=== PATIENT | male | born 1980 | race Two or more races ===

== ENCOUNTER 2025-03-24 12:33 | Emergency (ER) | payer OTHER ==
[~2025-03-24] VITALS: Ht 182.9 cm; Wt 134.0 kg
[2025-03-24] MEDS: IOHEXOL 300 MG/ML 100ML BOTTLE IJ ONE (13:28)
--- NOTE | 2025-03-24 13:38 | DVH ---
Procedure: CT HEAD WITHOUT CONTRAST Study Date and Requested Time: 03/24/2025 01:07 PM History: kicked off a horse Comparison: None Dose: CTDI: 47.96 mGy DLP: 1023.69 mGycm Technique: Multiplanar images obtained through the brain without intravenous contrast. Findings: Normal brain volume and formation. No hemorrhages, masses, mass effect, midline shift, herniation or cytotoxic edema following a large v ascular territory. No intra-axial or extra-axial fluid collections. No evidence of hydrocephalus. The basal cisterns are patent. The pituitary gland, sella and parasellar regions are unremarkable. The cerebellar tonsils are in nor mal position. The cerebellum is unremarkable. The orbits and globes are unremarkable. Mucous retention cysts within the right maxillary sinus with minimal mucoperiosteal thickening of the left maxillary sinus. Otherwise, the visualized paranasal si nuses and mastoids are clear. There are no worrisome calvarial lesions. Mild parieto-occipital scalp edema. Impression: No evidence of acute intracranial abnormality. Mild parieto-occipital scalp edema.
--- NOTE | 2025-03-24 13:48 | ED.PDOC ---
Mult. trauma (HPI) HPI Comments 45 y/o M, brought in by presents to the ED for CC of head injury. 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 Per patient's , patient suffered an approximate 5-6ft fall. Following trauma, patient july me repetitive with slight confusion. Upon arrival to the ED, patient is A&OX4 and c/o current head pain with upper and lower back pain. Patient denies nausea, vomiting, or changes in vision. No other symptoms or modifying factors present at this time. Chief Complaint: Head Injury Time Seen by MD: 13:10 Primary Care Provider: Kassi Quinn Reviewed notes: Nurses Notes, Medications, Allergies Allergies: Coded Allergies: NO KNOWN ALLERGIES (Unverified , 03/24/25) Information Source: Patient Mode of Arrival: Wheelchair Severity: Moderate Timing: Hours Duration: Since onset Prehospital treatment: None Location: Back, Head Location of laceration: None Mechanism: Fall Associated signs and symtoms: Headache Past Medical History PAST MEDICAL HISTORY: Denies Surgical History: Denies all surgeries Family History Family History: Unknown Social History Smoker: Non-Smoker Alcohol: Denies ETOH Use Drugs: Denies Drug Use Lives In: Home Constitutional: denies: chills, diaphoresis, fatigue, fever, malaise, sweats, weakness, others EENTM: denies: blurred vision, double vision, ear bleeding, ear discharge, ear drainage, ear pain, ear ringing, eye pain, eye redness, hearing loss, mouth pain, mouth swelling, nasal discharge, nose bleeding, nose congestion, nose pain, photophobia, tearing, throat pain, throat swelling, voice changes, others Respiratory: denies: cough, hemoptysis, orthopnea, SOB at rest, shortness of breath, SOB with excertion, stridor, wheezing, others Cardiovascular: denies: chest pain, dizzy spells, diaphoresis, Dyspnea on exertion, edema, irregular heart beat, left arm pain, lightheadedness, palpitations, PND, syncope, others Gastrointestinal: denies: abdomen distended, abdominal pain, blood streaked bowels, constipated, diarrhea, dysphagia, difficulty swallowing, hematemesis, melena, nausea, poor appetite, poor fluid intake, rectal bleeding, rectal pain, vomiting, others Genitourinary: denies: burning, dysuria, flank pain, frequency, hematuria, incontinence, penile discharge, penile sore, pain, testicle pain, testicle swelling, urgency, others Neurological: reports: headache; denies: dizziness, fainting, left sided numbness, left sided weakness, numbness, paresthesia, pre-existing deficit, right sided numbness, right sided weakness, seizure, speech problems, tingling, tremors, weakness, others Musculoskeletal: reports: back pain; denies: gout, joint pain, joint swelling, muscle pain, muscle stiffness, neck pain, others Integumetry: denies: bruises, change in color, change in hair/nails, dryness, laceration, lesions, lumps, rash, wounds, others Allergic/Immunocompromised: denies: Difficulty Healing, Frequent Infections, Hives, Itching, others Hematologic/Lymphatic: denies: anemia, blood clots, easy bleeding, easy bruising, swollen glands, others Endocrine: denies: excessive hunger, excessive sweating, excessive thirst, excessive urination, flushing, intolerance to cold, intolerance to heat, unexplained weight gain, unexplained weight loss, others Psychiatric: denies: anxiety, bipolar disorder, depression, hopeless, panic disorder, schizophrenia, sleepless, suicidal, others All Other Systems: Reviewed and Negative Physical Exam General Appearance: Moderate Distress, Normal, Severe Distress HEENT: Normal ENT Inspection, PERRL/EOMI Neck: Full Range of Motion, Non-Tender Respiratory: Lungs Clear, No Accessory Muscle Use, No Respiratory Distress, Normal Breath Sounds, Other (Severe pain left lateral chest) Cardiovascular: No Edema, No JVD, No Murmur, No Gallop, Normal Peripheral Pulses, Regular Rate/Rhythm Breast Exam: Deferred Gastrointestinal: No Organomegaly, Non Tender, No Pulsatile Mass, Normal Bowel Sounds, Soft Genitalia: Deferred Pelvic: Deferred Rectal: Deferred Extremities: No calf tenderness, Normal capillary refill, Normal inspection, Normal range of motion, Non-tender, No pedal edema Musculoskeletal : Location: Bilateral Extremity Location: Back Apperance: Swelling, Deformity, Limited ROM, Tenderness: Moderate Neurologic: Alert, clinical counselor II-XII nml as Tested, No Motor Deficits, Normal Affect, Normal Mood, No Sensory Deficits Cerebellar Function: Normal Reflexes: Normal Skin: Dry, Normal Color, Warm Peripheral Pulses: 1+ carotid (R), 1+ carotid (L) Lymphatic: No Adenopathy Was a procedure done? Was a procedure done?: No Differential Diagnosis Multiple Trauma: Closed Head Injury, Fractures, Pneumothorax, Pulmonary Contusion, Spine Injury, Urological Injury, Contusion, Hematoma Neck Injury: Cervical Sprain, Cervical Strain, Cervical Fracture, Other X-Ray, Labs, Meds, VS Vital Signs Date Time Temp Pulse Resp B/P (MAP) Pulse Ox O2 Delivery O2 Flow Rate FiO2 03/24/25 15:16 86 16 111/59 03/24/25 14:46 83 03/24/25 14:27 Nasal Cannula* 2 28 03/24/25 14:26 80 20 119/60 03/24/25 14:25 98.2 88 19 119/60 (79) 94 98.2 03/24/25 13:00 97.5 92 16 111/68 (82) 94 97.5 Lab Test 03/24/25 13:54 Range/Units White Blood Count 15.8 H 4.4-10.8 10^3/uL Red Blood Count 5.61 4.5-5.90 10^6/uL Hemoglobin 16.2 13.5-17.5 g/dL Hematocrit 47.4 41.0-53.0 % Mean Corpuscular Volume 84.4 80.0-100.0 fL Mean Corpuscular Hemoglobin 28.8 28.0-32.0 pg Mean Corpuscular Hemoglobin Concent 34.1 32.0-36.0 g/dL Red Cell Distribution Width 14.6 H 11.8-14.3 % Platelet Count 159 140-450 10^3/uL Mean Platelet Volume 9.5 6.9-10.8 fL Neutrophils (%) (Auto) 87.0 H 37.0-80.0 % Lymphocytes (%) (Auto) 7.7 L 10.0-50.0 % Monocytes (%) (Auto) 4.7 0.0-12.0 % Eosinophils (%) (Auto) 0.2 0.0-7.0 % Basophils (%) (Auto) 0.4 0.0-2.0 % Neutrophils # (Auto) 13.8 H 1.6-8.6 10 ^3/uL Lymphocytes # (Auto) 1.2 0.4-5.4 10 ^3/uL Monocytes # (Auto) 0.7 0-1.3 10 ^3/uL Eosinophils # (Auto) 0 0-0.8 10 ^3/uL Basophils # (Auto) 0.1 0-0.2 10 ^3/uL Nucleated Red Blood Cells 0.0 % Prothrombin Time 11.6 9.3-11.8 sec Prothrombin Time INR 1.11 0.9-1.15 Activated Partial Thromboplast Time 26.3 24.5-34.5 SEC Sodium Level 143 136-145 mmol/L Potassium Level 4.0 3.5-5.1 mmol/L Chloride Level 109 H 98-107 mmol/L Carbon Dioxide Level 25 20-31 mmol/L Anion Gap 9 5-15 Blood Urea Nitrogen 12 9-23 mg/dL Creatinine 0.95 0.700-1.30 mg/dL Glomerular Filtration Rate Calc 99 >90 mL/min BUN/Creatinine Ratio 12.6 10.0-20.0 Serum Glucose 159 H 74-106 mg/dL Calcium Level 9.9 8.7-10.4 mg/dL Magnesium Level 1.8 1.6-2.6 mg/dL Total Bilirubin 2.0 H 0.2-1.0 mg/dL Aspartate Amino Transferase (AST) 28 <34 U/L Alanine Aminotransferase (ALT) 28 7-40 U/L Alkaline Phosphatase 73 46-116 U/L Troponin I High Sensitivity < 3 L </=54 ng/L Total Protein 6.9 5.7-8.2 g/dL Albumin 4.3 3.2-4.8 g/dL Current Medications Medications (Trade) Dose Ordered Sig/Luann Route Start Time Stop Time Status Last Admin Ondansetron HCl (Zofran) 4 mg ONCE ONCE IV 03/24/25 13:30 03/24/25 13:31 DC 03/24/25 14:27 Morphine Sulfate 2 mg Q4HPRN PRN IV 03/24/25 13:30 03/24/25 14:26 Sodium Chloride 1,000 ml @ 150 mls/hr Q6H40M ONCE IV 03/24/25 13:30 03/24/25 20:09 03/24/25 14:27 [facility] [id number] [place] [id number] Ph: [phone] DIAGNOSTIC IMAGING Diagnostic Imaging Report : [id number] Signed PATIENT: RADHA MEJIA GACCT: [id number] UNIT: [id number] : 1980 LOC: ER ROOM / BED: / AGE / SEX: 45 / M ADM STATUS: REG ER SERVICE 1302 ORDERING PHYSICIAN: RHIANNON BAKER MD PROCEDURE(s): HWOCT - HEAD WITHOUT CONTRAST REASON: kicked off a horse ORDER NUMBER(s): [id number], ACCESSION NUMBER(s): [id number] Procedure: CT HEAD WITHOUT CONTRAST Study Date and Requested Time: 03/24/2025 01:07 PM History: kicked off a horse Comparison: None Dose: CTDI: 47.96 mGy DLP: 1023.69 mGycm Technique: Multiplanar images obtained through the brain without intravenous contrast. Findings: Normal brain volume and formation. No hemorrhages, masses, mass effect, midline shift, herniation or cytotoxic edema following a large vascular territory. No intra-axial or extra-axial fluid collections. No evidence of hydrocephalus. The basal cisterns are patent. The pituitary gland, sella and parasellar regions are unremarkable. The cerebellar tonsils are in normal position. The cerebellum is unremarkable. The orbits and globes are unremarkable. Mucous retention cysts within the right maxillary sinus with minimal mucoperiosteal thickening of the left maxillary sinus. Otherwise, the visualized paranasal sinuses and mastoids are clear. There are no worrisome calvarial lesions. Mild parieto-occipital scalp edema. Impression: No evidence of acute intracranial abnormality. Mild parieto-occipital scalp edema. ATED BY: RYANN RAWLS DO DICTATED DATE/TIME: 03/24/251334 SIGNED BY: RYANN RAWLS DO SIGNED DATE/TIME: 03/24/251334 CC: [address] [id number] Ph: [phone] DIAGNOSTIC IMAGING Diagnostic Imaging Report : [id number] Signed PATIENT: RADHA MEJIA GACCT: [id number] UNIT: [id number] : 1980 LOC: ER ROOM / BED: / AGE / SEX: 45 / M ADM STATUS: REG ER SERVICE 1319 ORDERING PHYSICIAN: BRAIN FELICIANO MD PROCEDURE(s): LS2CT - LS SPINE WO CONTRAST REASON: PAIN S/P TRAUMA; FALL FROM HORSE ORDER NUMBER(s): [id number], ACCESSION NUMBER(s): [id number] CT LS SPINE WO CONTRAST Indication: PAIN S/P TRAUMA; FALL FROM HORSE EXAM DATE: 03/24/2025 01:29 PM COMPARISON: None TECHNIQUE: CT of the lumbar spine without intravenous contrast. RADIATION DOSE: CTDIvol: 36.82 mGy, DLP: 1277.61 mGy*cm FINDINGS: There are 6 lumbar vertebral body types for the purposes of this examination. The lumbar vertebral body heights are maintained. Mxxn-xt-aizehxxb multilevel disc space narrowing. Alignment grossly preserved. Acute fracture of the left L3, L4 transverse processes. Acute fracture of the T12 and L1 spinous processes. Elig-fb-qhtghxfh facet hypertrophic changes. 7 mm L5 sclerotic lesion. Left flank region soft tissue hematoma measuring 14.5 x 4.1 X 6.5 cm. Large left renal bed fat containing lesion measuring at least 7.6 cm, incompletely characterized. Colonic diverticular disease. IMPRESSION: 6 lumbar vertebral body types are present. Acute fractures of the left L3, L4 transverse processes.Acute Fractures of the T12, L1 spinous processes. A 14.5 x 4.1 cm flank region soft tissue hematoma Large left renal fat containing lesion measuring at least 7.6 cm with differential considerations including angiomyolipoma, retroperitoneal liposarcoma. Recommend dedicated CT abdomen pelvis with contrast to evaluate. ATED BY: RAH ARGUETA MD DICTATED DATE/TIME: 03/24/251421 SIGNED BY: ARH ARGUETA MD SIGNED DATE/TIME: 03/24/251421 CC: [place] [address] Ph: [phone] DIAGNOSTIC IMAGING Diagnostic Imaging Report : [id number] Signed PATIENT: RADHA MEJIA GACCT: [id number] UNIT: [id number] : 1980 LOC: ER ROOM / BED: / AGE / SEX: 45 / M ADM STATUS: REG ER SERVICE 1320 ORDERING PHYSICIAN: BRAIN FELICIANO MD PROCEDURE(s): CXICT - CHEST WITH CONTRAST REASON: PAIN S/P TRAUMA; FALL FROM HORSE ORDER NUMBER(s): [id number], ACCESSION NUMBER(s): [id number] Procedure: CT CHEST WITH CONTRAST Study Date and Requested Time: 03/24/2025 01:25 PM History: PAIN S/P TRAUMA; FALL FROM HORSE Comparison: None Dose: CTDI: 29.16 mGy DLP: 994.75 mGycm Technique: Multiplanar images of the chest are obtained with contrast. 3-D image postprocessing was performed and images were used for interpretation and reporting. Findings: The thyroid gland is unremarkable. Borderline cardiomegaly. No evidence of aortic aneurysm or dissection. The p ulmonary trunk is normal in size. 3.6 by 2.2 by 3.4 cm fat adjacent to the right atrium which may represent pericardial or duplication cyst. No significant mediastinal lymphadenopathy. Bilateral lower lobe and lingula atelectasis. Single bleb over the medial upper lobe. No pneumothorax, pleural effusion or focal airspace consolidation. Moderate distention of the stomach. Cholelithiasis without evidence of acute cholecystitis. 2.1 cm right adrenal lesion with soft tissue and macroscopic fatty component. Additional partially imaged 4.5 cm and 3.6 cm left adrenal fatty lesion which may represent myelolipomas. Minimal posterior chest wall subcutaneous fat edema. Sclerotic focus of the left posterior rib 1 and 7 which may represent bone islands blastic lesions not excluded. Acute fractures of left posterior ribs 8-11 with the 12th rib outside the field of view. Acute fracture of the spinous processes of T7 through T11 with the spinous process of T12 outside the essgl-ch-kreh. Impression: Bilateral lower lobe and lingula atelectasis. Otherwise, No evidence of acute intrathoracic abnormalities. Single bleb over the left medial upper lobe. Acute fractures of left posterior ribs 8-11 with acute fractures of the spinous processes of T7 through T11. The T12 spinous process and ribs are outside the field of view. Suggested bilateral adrenal myelolipomas which is not completely imaged on the left. Pericardial or duplication cyst noted. ATED BY: RYANN RAWLS DO DICTATED DATE/TIME: 03/24/251443 SIGNED BY: RYANN RAWLS DO SIGNED DATE/TIME: 03/24/251443 CC: X-Ray, Labs, Meds, VS Comment In the emergency department eventful patient came in by ambulance to the emergency department after he fell off a horse actually the horse through him in a ground he is complaining of mostly he has chest in his left flank with his back no extremity injuries Patient with a history of hypertension [place] [address] with 87% neutrophils normal H&H INR one point 11 CMP blood sugar 159 Magnesium 1.8 Troponin less than three Bilirubin 2.0 CT of the chest shows atelectasis fracture posterior rate from AF to 11 and then posterior vertebrae from 7th 11 Has also adrenal myelolipoma CT of the lumbar spine shows a fracture of L3-L4 transverse process T12-L1 spinous process soft tissue hematoma to the flank large left renal mass which could be angio Hunter lipoma or liposarcoma 7.6 cm large Consulted with hospitalist patient will need to be transferred because of trauma issues Time of 1ST Reevaluation: 13:40 Reevaluation 1ST: Unchanged Patient Education/Counseling: Diagnosis, Treatment Family Education/Counseling: No Family Present Departure 1 Departure Time of Disposition: 15:31 Impression: Primary Impression: Animal-rider injured by fall from or being thrown from horse in noncollision accident, initial encounter Additional Impressions: Multiple closed fractures of cervical vertebrae Qualified Codes: S12.9XXA - Fracture of neck, unspecified, initial encounter Fracture of multiple cervical vertebrae Qualified Codes: S12.9XXA - Fracture of neck, unspecified, initial encounter Traumatic hematoma of flank Myelolipoma of adrenal gland Left renal mass Multiple rib fractures Qualified Codes: S22.42XA - Multiple fractures of ribs, left side, initial encounter for closed fracture History of cirrhosis Disposition: ADMITTED INPATIENT Condition: Serious Critical Care Note Critical Care Time?: No Stability Stability form required: Yes Comments Patient to be transferred to [facility] Comments Patient transferred to [facility] for further care Heart Score Heart Score: Heart Score Response (Comments) Value History N/A 0 EKG N/A 0 Age 45-64 1 Risk Factors 1 or 2 risk factors 1 Troponin Normal limit 0 Total 2 I personally scribed for BRAIN FELICIANO MD ([email or web address]) on 03/24/25 at 13:48. Electronically submitted by Karol Willett ([email or web address]). I personally scribed for BRAIN FELICIANO MD ([email or web address]) on 03/24/25 at 15:15. Electronically submitted by Karol Willett ([email or web address]). I personally scribed for BRAIN FELICIANO MD ([email or web address]) on 03/24/25 at 15:16. Electronically submitted by Karol Willett ([email or web address]). I personally scribed for BRAIN FELICIANO MD ([email or web address]) on 03/24/25 at 15:17. Electronically submitted by Karol Willett ([email or web address]). BRAIN FELICIANO MD Mar 24, 2025 13:48
[2025-03-24 14:15] LABS: Basophils # (auto) 0.1 10 ^3/uL (0-0.2); Basophils % (auto) 0.4 % (0.0-2.0); Eosinophils # (auto) 0 10 ^3/uL (0-0.8); Eosinophils % (auto) 0.2 % (0.0-7.0); Hematocrit 47.4 % (41.0-53.0); Hemoglobin 16.2 g/dL (13.5-17.5); Lymphocytes # (auto) 1.2 10 ^3/uL (0.4-5.4); Lymphocytes % (auto) 7.7 % (10.0-50.0); Mean Corpuscular Hemoglobin 28.8 pg (28.0-32.0); Mean Corpuscular Hgb Conc. 34.1 g/dL (32.0-36.0); Mean Corpuscular Volume 84.4 fL (80.0-100.0); Monocytes # (auto) 0.7 10 ^3/uL (0-1.3); Monocytes % (auto) 4.7 % (0.0-12.0); Neutrophils # (auto) 13.8 10 ^3/uL (1.6-8.6); Platelet Count (auto) 159 10^3/uL (140-450); Red Blood Cells 5.61 10^6/uL (4.5-5.90); Red Cell Distribution Width 14.6 % (11.8-14.3); White Blood Cell 15.8 10^3/uL (4.4-10.8)
[2025-03-24 14:22] LABS: Alanine Aminotransferase 28 U/L (7-40); Albumin 4.3 g/dL (3.2-4.8); Alkaline Phosphatase 73 U/L (46-116); Anion Gap 9 (5-15); Aspartate Aminotransferase 28 U/L (<34); BUN/Creatinine Ratio 12.6 (10.0-20.0); Blood Urea Nitrogen 12 mg/dL (9-23); Calcium 9.9 mg/dL (8.7-10.4); Carbon Dioxide 25 mmol/L (20-31); INR 1.11 (0.9-1.15); Magnesium 1.8 mg/dL (1.6-2.6); Partial Thromboplastin Time 26.3 SEC (24.5-34.5); Prothrombin Time 11.6 sec (9.3-11.8); Sodium 143 mmol/L (136-145); Total Protein 6.9 g/dL (5.7-8.2)
[2025-03-24 14:24] LABS: Chloride 109 mmol/L (98-107); Glucose 159 mg/dL (74-106)
--- NOTE | 2025-03-24 14:24 | DVH ---
CT LS SPINE WO CONTRAST Indication: PAIN S/P TRAUMA; FALL FROM HORSE EXAM DATE: 03/24/2025 01:29 PM COMPARISON: None TECHNIQUE: CT of the lumbar spine without intravenous contrast. RADIATION DOSE: CTDIvol: 36.82 mGy, DLP: 1277.61 mGy*cm FINDINGS: There are 6 lumbar vertebral body types for the purposes of this examination. The lumbar vertebral body heights are maintained. Qagz-bv-avpeacij multilevel disc space narrowing. Alignment grossly preserved. Acute fracture of the left L3, L4 transverse processes. Acute fracture of the T12 and L1 spinous processes. Xlsw-jq-qeafbgjc facet hypertrophic changes. 7 mm L5 sclerotic lesion. Left flank region soft tissue hematoma measuring 14.5 x 4.1 X 6.5 cm. Large left renal bed fat containing lesion measuring at least 7.6 cm, incompletely characterized. Colonic diverticular disease. IMPRESSION: 6 lumbar vertebral body types are present. Acute fractures of the left L3, L4 transverse processes.Acute Fractures of the T12, L1 spinous processes. A 14.5 x 4.1 cm flank region soft tissue hematoma Large left renal fat containing lesion measuring at least 7.6 cm with differential considerations inc luding angiomyolipoma, retroperitoneal liposarcoma. Recommend dedicated CT abdomen pelvis with contr ast to evaluate.
[2025-03-24] MEDS: MORPHINE SULFATE 4 MG/ML SYR/VIAL IV PRN (14:26)
[2025-03-24] MEDS: ONDANSETRON HCL 4 MG/2 ML VIAL IV ONE (14:27)
[2025-03-24] MEDS: SODIUM CHLORIDE 0.9% 1,000 ML IV ONE (14:27)
--- NOTE | 2025-03-24 14:47 | ECG ---
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
--- NOTE | 2025-03-24 14:47 | DVH ---
Procedure: CT CHEST WITH CONTRAST Study Date and Requested Time: 03/24/20 01:25 PM History: PAIN S/P TRAUMA; FALL FROM HORSE Comparison: None Dose: CTDI: 29.16 mGy DLP: 994.75 mGycm Technique: Multiplanar images of the chest are obtained with contrast. 3-D image postprocessing was p erformed and images were used for interpretation and reporting. Findings: The thyroid gland is unremarkable. Borderline cardiomegaly. No evidence of aortic aneurysm or dissection. The pulmonary trunk is normal in size. 3.6 by 2.2 by 3.4 cm fat adjacent to the right atrium which may represent pericardial or d uplication cyst. No significant mediastinal lymphadenopathy. Bilateral lower lobe and lingula atelectasis. Single bleb over the medial upper lobe. No pneumothora x, pleural effusion or focal airspace consolidation. Moderate distention of the stomach. Cholelithiasis without evidence of acute cholecystitis. 2.1 cm ri ght adrenal lesion with soft tissue and macroscopic fatty component. Additional partially imaged 4.5 cm and 3.6 cm left adrenal fatty lesion which may represent myelolipomas. Minimal posterior chest wall subcutaneous fat edema. Sclerotic focus of the left posterior rib 1 and 7 which may represent bone islands blastic lesions not excluded. Acute fractures of left posterior ri bs 8-11 with the 12th rib outside the field of view. Acute fracture of the spinous processes of T7 t hrough T11 with the spinous process of T12 outside the uergo-bs-qled. Impression: Bilateral lower lobe and lingula atelectasis. Otherwise, No evidence of acute intrathoracic abnormal ities. Single bleb over the left medial upper lobe. Acute fractures of left posterior ribs 8-11 with acute fractures of the spinous processes of T7 throu gh T11. The T12 spinous process and ribs are outside the field of view. Suggested bilateral adrenal myelolipomas which is not completely imaged on the left. Pericardial or duplication cyst noted.
[2025-03-24 17:03] VITALS: BP 121/71; PULSE 111; RESP 20; TEMP 98; O2SAT 96
== END 2025-03-24 17:12 | disposition short-term general hospital (02) ==
LOC: ER 12:33
DX: S22.42XA Multiple fractures of ribs, left side, initial encounter for closed fracture (principal); S32.039A Unspecified fracture of third lumbar vertebra, initial encounter for closed fracture; S32.049A Unspecified fracture of fourth lumbar vertebra, initial encounter for closed fracture; S30.1XXA Contusion of abdominal wall, initial encounter; D17.9 Benign lipomatous neoplasm, unspecified; D17.79 Benign lipomatous neoplasm of other sites; V80.010A Animal-rider injured by fall from or being thrown from horse in noncollision accident, initial encounter; Y93.52 Activity, horseback riding; Y92.89 Other specified places as the place of occurrence of the external cause; Y99.8 Other external cause status
CPT/HCPCS: 36415; 70450; 71260; 72131; 80053; 83735; 84484; 85025; 85610; 85730; 93005; 96361; 96374; 96375; 99285; J2270; J2405; J7030; Q9967